=== PATIENT | female | born 1955 | race Caucasian/White ===

== ENCOUNTER 2021-05-31 08:54 | Day surgery (SDC) | payer MEDICARE ==
[2021-05-31] MEDS ORDERED: Lactated Ringers 1,000 ML IV SCH (09:00)
[2021-05-31] MEDS ORDERED: Lactated Ringers 1,000 ML IV ONE ×2 (09:03→11:43)
--- NOTE | 2021-05-31 10:04 | HP ---
AMENDED REPORT: DATE OF SURGERY: 05/31/2021 HISTORY OF PRESENT ILLNESS: This is a patient who presents for colon cancer screening. She does have a history of colon polyps. She has no chest pain, no shortness of breath, no fever, no weight loss, no hematuria and no blood in her stool. No nausea, vomiting or diarrhea. She has no reflux currently but has had reflux in the distant past and is following with Dr. Santiago with this and has no symptoms on proton pump inhibitor therapy. She denies any abdominal pain. She does have chronic constipation and this has been for decades. She states that when she had polyps removed she was told that there was some precancer in it this was in [facility]. PAST MEDICAL HISTORY: Heart disease, history of colon polyps. PAST SURGICAL HISTORY: Breast reduction surgery. section x2. Bunion surgery. Right wrist surgery. MEDICATIONS: Aspirin, Alprazolam, Atorvastatin, Citalopram, cyclobenzaprine, ranolazine, pantoprazole. Please see her medication reconciliation. ALLERGIES: CELEBREX. CODEINE. MORPHINE. SOCIAL HISTORY: Occasional drinker. Previous history of smoking, no current smoking. FAMILY HISTORY: None. PHYSICAL EXAMINATION: GENERAL: No acute distress. CVS: Regular rate and rhythm. PULMONARY: Nonlabored. ABDOMEN: Soft, nontender, nondistended. EXTREMITIES: Normal. DIAGNOSIS: History of colon polyps. PLAN: Surveillance colonoscopy.
[2021-05-31] MEDS ORDERED: Ephedrine Sulfate 50 MG/ML ONE (11:17)
[2021-05-31] MEDS ORDERED: GlucaGen 1 MG ONE (11:20)
[2021-05-31] MEDS ORDERED: Versed 2 MG/2 ML Injection ONE (11:24)
[2021-05-31 13:07] VITALS: BP 122/77; PULSE 70; O2SAT 95
--- NOTE | 2021-05-31 14:15 | OP ---
PROCEDURE DATE/TIME: 05/31/2021 1110 PREOPERATIVE DIAGNOSIS: Surveillance. POSTOPERATIVE DIAGNOSIS: Colon polyps, minimal trace diverticulosis, angulated sigmoid colon. PROCEDURE: Colonoscopy to cecum with cold forceps polypectomy proximal sigmoid colon. PROCEDURE PERFORMED BY: Astrid Claudio M.D. COMPLICATIONS: None. ESTIMATED BLOOD LOSS: Minimal. ANESTHESIA: MAC. SPECIMEN: Sigmoid colon polyp (proximal). PLAN: Colonoscopy in five years. HISTORY: This is a 65 year-old who presents for surveillance colonoscopy. She has had polyps prior. Risks, benefits, alternatives discussed with her in the preoperative area. See my full H&P for additional notes. After discussing again on the day of the procedure with the patient, reviewing and completing her H&P and her consent and confirming these she was then brought back to the endoscopy suite. DESCRIPTION OF PROCEDURE: She was laid in the left lateral decubitus position. A complete time out was performed. First a rectal exam was done and this was normal. The scope was then inserted and gently advanced to the level of the cecum. She had quite sharp angulation in her sigmoid colon. I did have to use flush to assist the colon to open in these very angulated areas and I did have to give her Glucagon as well because of spasm but with these maneuvers I was able to very gently cross these angulations and then we used some gentle abdominal pressure to assist this to guide the scope to the level of the cecum. The cecum was able to be evaluated. There was a moderate amount of liquid stool when we arrived in the cecum. I very thoroughly irrigated this. Overall the view in her colon was satisfactory. She did have stool that I did have to irrigate out but once this was done I was happy with the view. I visualized the appendiceal orifice, the ileocecal valve and then we carefully withdrew the scope taking a very close circumferential look. The cecum, ascending, transverse and descending colon were all normal. She had a few small diverticula in her sigmoid colon as well as one proximal sigmoid colon benign-appearing polyp this was small and it was taken in entirety with two bites of cold forceps. The tissue was sent to pathology. The site looked hemostatic. Polyps fully removed. The scope was then further withdrawn. No other significant findings in the remainder of the sigmoid or the rectum. Due to the patient's past medical history, the finding of a polyp on this scope and her path, I would recommend a colonoscopy in approximately five years. She is going to follow up with me in approximately one month to discuss these results. I have discussed her instructions with her nurse and called the family through the number given and voice mail received and so we will attempt again.
== END 2021-05-31 13:00 | disposition home or self-care (01) ==
LOC: SDC 08:54
PROVIDERS: ATTEND Surgery
DX: Z12.11 Encounter for screening for malignant neoplasm of colon (principal); D12.5 Benign neoplasm of sigmoid colon; Z86.010 Personal history of colon polyps; K57.30 Diverticulosis of large intestine without perforation or abscess without bleeding; K56.609 Unspecified intestinal obstruction, unspecified as to partial versus complete obstruction
CPT/HCPCS: J1610; J2250

== ENCOUNTER 2021-08-07 18:29 | Emergency (ER) | payer MEDICARE ==
[2021-08-07] MEDS ORDERED: Cleocin Phosphate IV 600 MG/4 ML IM STA (18:46)
[2021-08-07] MEDS ORDERED: Cleocin Phosphate IV 600 MG/4 ML ONE (18:50)
--- NOTE | 2021-08-07 19:08 | ERPHSYRPT ---
- History of Present Illness Time Seen by Provider: 08/07/21 18:34 Source: patient Exam Limitations: no limitations Patient Subjective Stated Complaint: PT HERE FOR ABSCESESS TO RIGHT ARM FOR ABOUT 4 DAYS NOW, UNSURE FOR WHAT HAPPENED Triage Nursing Assessment: PT ALERT, RESP EASY, SKIN W/D/P. FACE MASK IN PLACE, HAS SWELLING REDDNESS AND DRAINAGE TO RIGHT FOREAM Physician History: 65 years old female presented in the ER with chief complaint of right forearm draining abscess. Patient reports she noticed a small bump 4 days ago after she fell asleep in garage. Gradually increasing with associated dull aching to s harp pain mild to moderate intensity and since morning noticed some drainage of pus. No difficulty movements of hand/wrist. No fever or chills reported. Up-to-date with tetanus. Timing/Duration: day(s) (4), constant, gradual onset, worse Quality: burning, painful Severity: moderate Location: extremities Possible Causes: no cause identified Associated Symptoms: change in skin texture, edema, rash, swelling/mass/lumps Allergies/Adverse Reactions: celecoxib [From Celebrex] Allergy (Verified 08/07/21 18:32) Swelling codeine Allergy (Verified 08/07/21 18:32) morphine Allergy (Verified 08/07/21 18:32) Nausea and Vomiting Home Medications: ALPRAZolam [Alprazolam] 1 mg PO BID 05/24/21 [History] Atorvastatin Calcium [Lipitor] 40 mg PO HS 05/24/21 [History] Cholecalciferol (Vitamin D3) [Vitamin D3] 5,000 unit PO DAILY 05/24/21 [History] Citalopram Hydrobromide [Celexa] 40 mg PO DAILY 05/24/21 [History] Cyclobenzaprine HCl [Flexeril] 5 mg PO BID PRN 05/24/21 [History] Pantoprazole Sodium 40 mg PO DAILY 05/24/21 [History] Pyridoxal Phosphate [Ymxcfeanp-1-Jyowgzfqa] 1 gm MC DAILY 05/24/21 [History] Ranolazine [Ranolazine ER] 1,000 mg PO BID 05/24/21 [History] Hx Tetanus, Diphtheria Vaccination/Date Given: No (UNSURE) Hx Influenza Vaccination/Date Given: No Hx Pneumococcal Vaccination/Date Given: No Immunizations Up to Date: Yes Travel Risk - International Travel Have you traveled outside of the country in past 3 weeks: No - Coronavirus Screening Are you exhibiting any of the following symptoms?: No Close contact with a COVID-19 positive Pt in past 14-21 Days: No - Vaccine Status Have you recieved a Covid-19 vaccination: Yes 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 - Review of Systems Constitutional: No Symptoms Ears, Nose, & Throat: No Symptoms Respiratory: No Symptoms Cardiac: No Symptoms Abdominal/Gastrointestinal: No Symptoms Skin: Cellulitis, Skin Lesions Neurological: No Symptoms Psychological: No Symptoms - Past Medical History Neurological History: No Pertinent History ENT History: Cataracts Cardiac History: High Cholesterol, Other Respiratory History: Other Endocrine Medical History: No Pertinent History Musculoskeletal History: Arthritis, Fractures GI Medical History: GERD History: No Pertinent History Psycho-Social History: Depression Female Reproductive Disorders: No Pertinent History Other Medical History: "heart valve problems". Scar on left lung. - Past Surgical History Past Surgical History: Yes Neuro Surgical History: No Pertinent History Cardiac: No Pertinent History Respiratory: No Pertinent History Gastrointestinal: No Pertinent History Genitourinary: No Pertinent History Musculoskeletal: Orthopedic Surgery, Other Female Surgical History: Section, Tubal Ligation, Other Other Surgical History: Ablation. hand surgery. knee surgery. 3 foot surgeries - Social History Smoking Status: Former smoker Exposure to second hand smoke: No Drug Use: none Patient Lives Alone: Yes - Female History Hx Last Menstrual Period: POST Hx Now: No - Nursing Vital Signs Nursing Vital Signs: Initial Vital Signs Temperature 97.5 F 08/07/21 18:35 Pulse Rate 74 08/07/21 18:35 Respiratory Rate 18 08/07/21 18:35 Blood Pressure 124/76 08/07/21 18:35 O2 Sat by Pulse Oximetry 98 08/07/21 18:35 Pain Scale Pain Intensity 5 - Physical Exam General Appearance: no apparent distress Eye Exam: PERRL/EOMI Neck Exam: normal inspection, full range of motion Respiratory Exam: normal breath sounds, lungs clear Cardiovascular Exam: regular rate/rhythm, normal heart sounds Extremity Exam: inflammation, swelling (5 x 4 cm area of induration with central drainage right forearm posterior medial aspect. Induration. Minimal tenderness. No fluctuation.), tenderness Neurologic Exam: alert, oriented x 3, cooperative Skin Exam: normal color SpO2 Interpretation: normal SpO2: 98 O2 Delivery: Room Air Ordered Tests: Medication Summary Discontinued Medications Generic Name Dose Route Start Last Admin Trade Name Yousuf PRN Reason Stop Dose Admin Clindamycin Phosphate 600 mg 08/07/21 18:46 08/07/21 18:51 Clindamycin Phosphate 600 Mg/4 Ml Vial IM 08/07/21 18:47 600 mg ONCE STA Administration Clindamycin Phosphate Confirm 08/07/21 18:50 Clindamycin Phosphate 600 Mg/4 Ml Vial Administered 08/07/21 18:51 Dose 600 mg .ROUTE .STK-MED ONE - Progress Progress: unchanged Progress Note: 08/07/21 19:02 She has a draining abscess. Do not think she needs incision and drainage at this point minutes already draining and she is started on clindamycin. Given 1 dose IM here and will continue with oral to go home. Discussed signs symptoms of worsening needing return to ER which she seems understanding. Counseled pt/family regarding: diagnosis, need for follow-up - Departure Departure Disposition: Home (MRI) Clinical Impression: Abscess of forearm, right Condition: Stable Critical Care Time: No Referrals: BALBIR BREEN DO [Primary Care Provider] - (In 2 days for reevaluation.) Instructions: MRSA (DC), Wound Infection Additional Instructions: Keep it clean. Take Tylenol/ibuprofen as needed for pain. Follow-up with primary care for reevaluation. Return to ER for increasing swelling redness, fever chills/pain etc. Prescriptions: Clindamycin HCl 150 mg [Cleocin 150 mg Capsule] 2 cap PO QID #56 cap
[2021-08-07 19:17] VITALS: BP 115/69; PULSE 60; O2SAT 99
== END 2021-08-07 19:17 | disposition home or self-care (01) ==
LOC: ED 18:29
DX: L02.818 Cutaneous abscess of other sites (principal)
CPT/HCPCS: 96372; 99283

== ENCOUNTER 2021-11-17 11:18 | Day surgery (SDC) | payer MEDICARE ==
[2021-11-17] MEDS ORDERED: LIDOCAINE HCL 2% 100 MG/5 ML IJ ONE (11:19)
[2021-11-17] MEDS ORDERED: Decadron 4 MG INJ IV ONE (11:19)
[2021-11-17] MEDS ORDERED: DIPRIVAN 200 MG/20 ML IV ONE (13:41)
[2021-11-17] MEDS ORDERED: Lactated Ringers 1,000 ML IV ONE (14:27)
--- NOTE | 2021-11-17 14:52 | XRAY ---
Indication: Right C2-C4 MBB. Intraoperative fluoroscopy provided for 16 seconds. 2 digital spot image submitted for interpretation demonstrates posterior needle tips projecting over the expected right C2-C4 nerve roots. Correlate with intraoperative findings/report.
--- NOTE | 2021-11-17 15:01 | XRAY ---
9 seconds fluoroscopy time in surgery for bilateral C2-C4 MBB.
== END 2021-11-17 14:09 | disposition home or self-care (01) ==
LOC: SDC-PAIN 11:18
PROVIDERS: ATTEND Psychiatry & Neurology Pain Medicine
DX: M47.812 Spondylosis without myelopathy or radiculopathy, cervical region (principal); Z79.899 Other long term (current) drug therapy
CPT/HCPCS: 64490; 64491; 72040; 77002; J1100; J2704

== ENCOUNTER 2022-05-15 17:34 | Emergency (ER) | payer MEDICARE ==
[2022-05-15] MEDS ORDERED: Sodium Chloride 0.9% 1000 ML 1,000 ML IV STA (18:01)
[2022-05-15] MEDS ORDERED: solu-MEDROL 125 MG, Sterile H2O 10 ml 2 ML IV ONE ×2 (18:01)
[2022-05-15] MEDS ORDERED: SUBLIMAZE 100 MCG/2 ML IV ONE (18:04)
--- NOTE | 2022-05-15 18:04 | ERPHSYRPT ---
- History of Present Illness Time Seen by Provider: 05/15/22 17:55 Source: patient Exam Limitations: no limitations Physician History: Patient is a 66-year-old female who presents with a report of 2 positive COVID test at home she became ill yesterday. She complains of a severe headache sore throat and cough. She feels as if she is dehydrated she has been dizzy. She denies nausea or vomiting diarrhea. Timing/Duration: yesterday Cough Quality/Degree: moderate Possible Cause: no prior episodes Modifying Factors: Improves With: nothing, coughing Associated Symptoms: cough, dizziness, headache Allergies/Adverse Reactions: celecoxib [From Celebrex] Allergy (Verified 05/15/22 18:02) Swelling codeine Allergy (Verified 05/15/22 18:02) morphine Allergy (Verified 05/15/22 18:02) Nausea and Vomiting Home Medications: Atorvastatin Calcium [Lipitor] 40 mg PO HS 05/24/21 [History] Cholecalciferol (Vitamin D3) [Vitamin D3] 5,000 unit PO DAILY 05/24/21 [History] Citalopram Hydrobromide [Celexa] 40 mg PO DAILY 05/24/21 [History] Cyclobenzaprine HCl [Flexeril] 5 mg PO BID PRN 05/24/21 [History] Pantoprazole Sodium 40 mg PO DAILY 05/24/21 [History] Ranolazine [Ranolazine ER] 1,000 mg PO BID 05/24/21 [History] Ubrogepant [Ubrelvy] 50 mg PO UD PRN 05/15/22 [History] Hx Tetanus, Diphtheria Vaccination/Date Given: No (UNSURE) Hx Influenza Vaccination/Date Given: No Hx Pneumococcal Vaccination/Date Given: No Travel Risk - Vaccine Status Have you recieved a Covid-19 vaccination: Yes Financial Legal Assistant: X-1 - Vaccination Dates Date of 2cond Vaccination (if applicable): ? - Review of Systems Constitutional: Weakness, No Fever, No Chills Eyes: No Symptoms Ears, Nose, & Throat: No Symptoms, Throat Pain Respiratory: Cough, Dyspnea Cardiac: No Chest Pain, No Edema, No Syncope Abdominal/Gastrointestinal: No Abdominal Pain, No Nausea, No Vomiting, No Diarrhea Genitourinary Symptoms: No Dysuria Musculoskeletal: Arthralgias, Deformity, No Back Pain, No Neck Pain Skin: No Rash Neurological: No Dizziness, No Focal Weakness, No Sensory Changes Psychological: No Symptoms Endocrine: No Symptoms All Other Systems: Reviewed and Negative - Past Medical History Neurological History: No Pertinent History ENT History: Cataracts Cardiac History: High Cholesterol, Other Respiratory History: Other Endocrine Medical History: No Pertinent History Musculoskeletal History: Arthritis, Fractures GI Medical History: GERD History: No Pertinent History Psycho-Social History: Depression Female Reproductive Disorders: No Pertinent History Other Medical History: "heart valve problems". Scar on left lung. - Past Surgical History Past Surgical History: Yes Neuro Surgical History: No Pertinent History Cardiac: No Pertinent History Respiratory: No Pertinent History Gastrointestinal: No Pertinent History Genitourinary: No Pertinent History Musculoskeletal: Orthopedic Surgery, Other Female Surgical History: Section, Tubal Ligation, Other Other Surgical History: Ablation. hand surgery. knee surgery. 3 foot ignacio geries - Social History Smoking Status: Former smoker Exposure to second hand smoke: No Drug Use: none Patient Lives Alone: Yes - Nursing Vital Signs Nursing Vital Signs: Initial Vital Signs Temperature 98.8 F 05/15/22 17:50 Pulse Rate 67 05/15/22 17:50 Blood Pressure 122/79 05/15/22 17:50 O2 Sat by Pulse Oximetry 95 05/15/22 17:50 Pain Scale Pain Intensity 3 - Physical Exam General Appearance: mild distress Eye Exam: PERRL/EOMI, eyes nml inspection Ears, Nose, Throat Exam: normal ENT inspection, TMs normal, moist mucous membranes, pharyngeal erythema Neck Exam: normal inspection, non-tender, supple, full range of motion Respiratory Exam: normal breath sounds, lungs clear, No respiratory distress Cardiovascular Exam: regular rate/rhythm, normal heart sounds Gastrointestinal/Abdomen Exam: soft, No tenderness Back Exam: normal inspection, No CVA tenderness, No vertebral tenderness Extremity Exam: normal inspection, normal range of motion Neurologic Exam: alert, oriented x 3, cooperative, normal mood/affect, sensation nml, No motor deficits Skin Exam: normal color, warm, dry, No rash Lymphatic Exam: No adenopathy SpO2: 99 O2 Delivery: Room Air - Course Nursing assessment & vital signs reviewed: Yes - Radiology Exams Chest X-ray Interpretation: Interpreted by me, Negative Ordered Tests: Active Orders 24 hr Category Date Time Status EKG-ER Only STAT Care 05/15/22 18:01 Active CHEST 1 VIEW (PORTABLE) Stat Exams 05/15/22 18:17 Taken CBC W DIFF Stat Lab 05/15/22 18:25 Completed CMP Stat Lab 05/15/22 18:25 Completed D-DIMER QUANTITATIVE Stat Lab 05/15/22 18:25 Completed Lactic Acid Stat Lab 05/15/22 18:30 Completed MAGNESIUM Stat Lab 05/15/22 18:25 Completed NT PRO BNP Stat Lab 05/15/22 18:25 Completed TROPONIN Q3H Lab 05/15/22 18:25 Completed TROPONIN Q3H Lab 05/15/22 21:15 Ordered TROPONIN Q3H Lab 05/16/22 00:15 Ordered TROPONIN Q3H Lab 05/16/22 03:15 Ordered TROPONIN Q3H Lab 05/16/22 06:15 Ordered Medication Summary Discontinued Medications Generic Name Dose Route Start Last Admin Trade Name Marcellq PRN Reason Stop Dose Admin Methylprednisolone Sodium 0 mg 05/15/22 18:01 05/15/22 18:36 Succinate 125 mg/ Sterile IV 05/15/22 18:02 125 mg Water 2 ml STAT ONE Administration Fentanyl Citrate 50 mcg 05/15/22 18:04 05/15/22 18:34 Fentanyl Citrate 100 Mcg/2 Ml* Vial IV 05/15/22 18:05 50 mcg STAT ONE Administration Fentanyl Citrate Confirm 05/15/22 18:29 Fentanyl Citrate 100 Mcg/2 Ml* Vial Administered 05/15/22 18:30 Dose 100 mcg .ROUTE .STK-MED ONE Sodium Chloride 1,000 mls @ 999 mls/hr 05/15/22 18:01 05/15/22 19:33 Sodium Chloride 0.9% 1000 Ml IV 05/15/22 19:01 Infused .Q1H1M STA Infusion Sodium Chloride Confirm 05/15/22 18:29 Sodium Chloride 0.9% 1000 Ml Administered 05/15/22 18:30 Dose 1,000 mls @ ud .ROUTE .STK-MED ONE Methylprednisolone Sodium Succinate Confirm 05/15/22 18:29 Methylprednis Sod Succ 125 Mg/2 Ml Vial Administered 05/15/22 18:30 Dose 125 mg .ROUTE .STK-MED ONE Sterile Water Confirm 05/15/22 18:29 Water For Injection,Sterile 10 Ml Vial Administered 05/15/22 18:30 Dose 10 ml IJ .STK-MED ONE Lab/Rad Data: Laboratory Result Diagrams 05/15/22 18:25 05/15/22 18:25 Laboratory Results 05/15/22 05/15/22 05/15/22 Range/Units 18:30 18:25 18:25 WBC (4.0-10.5) x10^3/uL RBC (4.1-5.4) x10^6/uL Hgb (12.0-16.0) g/dL Hct (35-47) % MCV (78-100) fL MCH (26-32) pg MCHC (32-36) g/dL RDW (11.5-14.0) % Plt Count (150-450) x10^3/uL MPV (7.5-11.0) fL Gran % (36.0-66.0) % Immature Gran % (Auto) (0.00-0.4) % Nucleat RBC Rel Count (0.00-0.1) % Eos # (Auto) (0-0.5) x10^3/uL Immature Gran # (Auto) (0.00-0.03) x10^3u/L Absolute Lymphs (auto) (1.0-4.6) x10^3/uL Absolute Monos (auto) (0.0-1.3) x10^3/uL Absolute Nucleated RBC (0.00-0.01) x10^3u/L Lymphocytes % (24.0-44.0) % Monocytes % (0.0-12.0) % Eosinophils % (0.00-5.0) % Basophils % (0.0-0.4) % Absolute Granulocytes (1.4-6.9) x10^3/uL Basophils # (0-0.4) x10^3/uL D-Dimer (0.0-0.50) mg/L Sodium (137-145) mmol/L Potassium (3.5-5.1) mmol/L Chloride (98-107) mmol/L Carbon Dioxide (22-30) mmol/L Anion Gap (5-15) MEQ/L BUN (7-17) mg/dL Creatinine (0.52-1.04) mg/dL Estimated GFR ML/MIN Glucose (74-106) mg/dL Lactic Acid 0.9 (0.4-2.0) Calcium (8.4-10.2) mg/dL Magnesium (1.6-2.3) mg/dL Total Bilirubin (0.2-1.3) mg/dL AST (14-36) U/L ALT (0-35) U/L Alkaline Phosphatase (38-126) U/L Troponin I < 0.012 (0.000-0.034) ng/mL NT-Pro-B Natriuret Pep (0-900) pg/mL Serum Total Protein (6.3-8.2) g/dL Albumin (3.5-5.0) g/dL Influenza Type A Ag NEGATIVE (NEGATIVE) Influenza Type B Ag NEGATIVE (NEGATIVE) RSV (PCR) NEGATIVE (Negative) SARS-CoV-2 (PCR) POSITIVE A (NEGATIVE) Group A Strep Antibody NOT DETECTED (NEGATIVE) 05/15/22 05/15/22 05/15/22 Range/Units 18:25 18:25 18:25 WBC 6.4 (4.0-10.5) x10^3/uL RBC 4.03 L (4.1-5.4) x10^6/uL Hgb 12.7 (12.0-16.0) g/dL Hct 39.5 (35-47) % MCV 98.0 (78-100) fL MCH 31.5 (26-32) pg MCHC 32.2 (32-36) g/dL RDW 13.2 (11.5-14.0) % Plt Count 214 (150-450) x10^3/uL MPV 9.2 (7.5-11.0) fL Gran % 53.4 (36.0-66.0) % Immature Gran % (Auto) 0.3 (0.00-0.4) % Nucleat RBC Rel Count 0.0 (0.00-0.1) % Eos # (Auto) 0.11 (0-0.5) x10^3/uL Immature Gran # (Auto) 0.02 (0.00-0.03) x10^3u/L Absolute Lymphs (auto) 1.84 (1.0-4.6) x10^3/uL Absolute Monos (auto) 0.97 (0.0-1.3) x10^3/uL Absolute Nucleated RBC 0.00 (0.00-0.01) x10^3u/L Lymphocytes % 28.7 (24.0-44.0) % Monocytes % 15.1 H (0.0-12.0) % Eosinophils % 1.7 (0.00-5.0) % Basophils % 0.8 (0.0-0.4) % Absolute Granulocytes 3.43 (1.4-6.9) x10^3/uL Basophils # 0.05 (0-0.4) x10^3/uL D-Dimer 0.40 (0.0-0.50) mg/L Sodium 138 (137-145) mmol/L Potassium 4.2 (3.5-5.1) mmol/L Chloride 105 (98-107) mmol/L Carbon Dioxide 30 (22-30) mmol/L Anion Gap 7.5 (5-15) MEQ/L BUN 11 (7-17) mg/dL Creatinine 0.72 (0.52-1.04) mg/dL Estimated GFR > 60.0 ML/MIN Glucose 103 (74-106) mg/dL Lactic Acid (0.4-2.0) Calcium 10.3 H (8.4-10.2) mg/dL Magnesium 2.0 (1.6-2.3) mg/dL Total Bilirubin 0.40 (0.2-1.3) mg/dL AST 32 (14-36) U/L ALT 22 (0-35) U/L Alkaline Phosphatase 85 (38-126) U/L Troponin I (0.000-0.034) ng/mL NT-Pro-B Natriuret Pep 128 (0-900) pg/mL Serum Total Protein 6.6 (6.3-8.2) g/dL Albumin 3.8 (3.5-5.0) g/dL Influenza Type A Ag (NEGATIVE) Influenza Type B Ag (NEGATIVE) RSV (PCR) (Negative) SARS-CoV-2 (PCR) (NEGATIVE) Group A Strep Antibody (NEGATIVE) - Progress Progress: improved Air Movement: good Blood Culture(s) Obtained: No Antibiotics given: Yes - Departure Departure Disposition: Home Clinical Impression: COVID Condition: Stable Critical Care Time: No Referrals: BALBIR BREEN DO [Primary Care Provider] - Follow up/PCP as directed Instructions: COVID-19 (DC) Prescriptions: Nirmatrelvir/Ritonavir [Paxlovid 2X150 mg-100 mg (Eua)] 1 each PO BID 5 Days #10 tablet Tramadol HCl 50 mg [Ultram 50 mg] 50 mg PO Q6H 3 Days #12 tablet Azithromycin 250 mg [Zithromax 250 MG TABLET] 250 mg PO ZPACK #6 tablet
[2022-05-15 18:27] LABS: Absolute Neutrophil Ct (ANC) 3.43 x10^3/uL (1.4-6.9); Basophil (Absolute #) 0.05 x10^3/uL (0-0.4); Eosinophil % 1.7 % (0.00-5.0); Eosinophil (Absolute #) 0.11 x10^3/uL (0-0.5); Hematocrit 39.5 % (35-47); Hemoglobin 12.7 g/dL (12.0-16.0); Lymphocyte (Absolute #) 1.84 x10^3/uL (1.0-4.6); Lymphocytes % 28.7 % (24.0-44.0); Mean Corpuscular Hemoglobin 31.5 pg (26-32); Mean Corpuscular Hgb Concent. 32.2 g/dL (32-36); Mean Platelet Volume 9.2 fL (7.5-11.0); Monocyte (Absolute #) 0.97 x10^3/uL (0.0-1.3); Monocytes % 15.1 % (0.0-12.0); Neutrophil % 53.4 % (36.0-66.0); Platelet Count 214 x10^3/uL (150-450); Red Blood Count 4.03 x10^6/uL (4.1-5.4); Red Cell Distribution Width 13.2 % (11.5-14.0); White Blood Count 6.4 x10^3/uL (4.0-10.5)
[2022-05-15] MEDS ORDERED: Sterile H2O 10 ml IJ ONE (18:29)
[2022-05-15] MEDS ORDERED: SUBLIMAZE 100 MCG/2 ML ONE (18:29)
[2022-05-15] MEDS ORDERED: Sodium Chloride 0.9% 1000 ML 1,000 ML ONE (18:29)
[2022-05-15] MEDS ORDERED: solu-MEDROL ONE (18:29)
[2022-05-15 18:52] LABS: Group A Strep NOT DETECTED (NEGATIVE)
[2022-05-15 18:54] LABS: ALBUMIN 3.8 g/dL (3.5-5.0); ALKALINE PHOSPHATASE 85 U/L (38-126); ANION GAP 7.5 MEQ/L (5-15); BLOOD UREA NITROGEN 11 mg/dL (7-17); CHLORIDE 105 mmol/L (98-107); Calcium 10.3 mg/dL (8.4-10.2); Carbon Dioxide 30 mmol/L (22-30); Creatinine 1 0.72 mg/dL (0.52-1.04); EST GLOMERULAR FILTRATION RATE > 60.0 ML/MIN; Glucose 103 mg/dL (74-106); NT PRO BNP 128 pg/mL (0-900); Potassium 4.2 mmol/L (3.5-5.1); SGOT/AST 32 U/L (14-36); SGPT/ALT 22 U/L (0-35); SODIUM 138 mmol/L (137-145); Total Protein 6.6 g/dL (6.3-8.2)
[2022-05-15 19:04] LABS: INFLUENZA A NEGATIVE (NEGATIVE); INFLUENZA B NEGATIVE (NEGATIVE); RESPIRATORY SYNCTIAL VIRUS NEGATIVE (Negative)
[2022-05-15 19:07] LABS: SARS-CoV-2 Xpert Express POSITIVE (NEGATIVE)
[2022-05-15] MEDS ORDERED: Zithromax 250 MG TABLET ONE (19:41)
[2022-05-15] MEDS ORDERED: Zithromax 250 MG TABLET PO ONE (19:43)
[2022-05-15] MEDS ORDERED: ULTRAM 50 MG PO PRN (19:47)
[2022-05-15] MEDS ORDERED: ULTRAM 50 MG ONE (19:50)
[2022-05-15 19:56] VITALS: BP 129/76; PULSE 87; O2SAT 98
--- NOTE | 2022-05-16 08:35 | XRAY ---
ONE VIEW CHEST: [AP upright portable one view] COMPARISON: Two-view chest from 05/26/2021. INDICATION: Cough, sore throat, testing for covid-19 FINDINGS: [The film was obtained and mild lordotic projection. A prominent epicardial fat pad is seen at the right cardiophrenic angle. The heart size and contour are normal. The cyndy and mediastinal structures appear intact. There is mild tortuosity of both the ascending and descending thoracic aorta. There are a few granulomatous calcifications overlying the inferior margin of the right hilum and the AP window on the left. Mild tortuosity descending thoracic aorta is seen. The lung peoples are well expanded and appear clear, except for a few small scattered calcified granulomas. Pulmonary vascularity is normal. No pneumothorax or pleural effusion is seen. The visualized bones appear grossly intact. IMPRESSION: 1. [No active cardiopulmonary disease is seen. 2. Old healed granulomatous disease representing no change.]
== END 2022-05-15 19:57 | disposition home or self-care (01) ==
LOC: ED 17:34
DX: U07.1 COVID-19 (principal); R51.9 Headache, unspecified; R07.0 Pain in throat; R05.1 Acute cough; R42 Dizziness and giddiness; E78.5 Hyperlipidemia, unspecified; Z79.899 Other long term (current) drug therapy; Z79.891 Long term (current) use of opiate analgesic
CPT/HCPCS: 0241U; 36000; 36415; 71045; 80053; 83605; 83735; 83880; 84484; 85025; 85379; 87651; 96360; 96374; 96375; 99284; J2930; J3010; A9270-GY